=== PATIENT | female | born 1995 | race Caucasian/White ===

== ENCOUNTER → 2018-06-19 | Outpatient (CLI) | payer BC, OTHER ==
--- NOTE | 2018-06-19 17:36 | Diagnostic Imaging Report ---
INDICATION: Stress fracture TECHNIQUE: Three-phase bone scan imaging was performed after the administration of 26.1 mCi of technetium 99m MDP. FINDINGS: Blood flow and blood pool images demonstrate no abnormal activity within either femur. Delayed imaging demonstrates a questionable faint area of slight increased uptake in the mid left femoral diaphysis. IMPRESSION: Faint area of slight increased activity in the mid left femoral diaphysis on delayed imaging. This is nonspecific. Recommend correlation with plain films, if warranted followup with MRI. Otherwise, unremarkable three-phase bone scan. Dictated by: Dictated on workstation # [id number]
== END ==
LOC: CARD 11:45
PROVIDERS: ATTEND Orthopaedic Surgery
DX: M84.352A Stress fracture, left femur, initial encounter for fracture (principal)
CPT/HCPCS: 78315